=== PATIENT | female | born 1950 | race Caucasian/White ===

== ENCOUNTER → 2018-11-21 | Outpatient (CLI) | payer OTHER ==
[~2018-11-21] MED LIST: ADDERALL 30 MG30 MG PO; ANTIDEPRESSANT; CLONAZEPAM 0.50.5 M1 PO; LEVOXYL50 MCG PO; REQUIP 0.25 M0.25 MG PO; TRAZODONE HCL50 MG PO; WELLBUTRIN XL300 MG PO
== END ==
LOC: M.CT 11-20 09:45
DX: I25.84 Coronary atherosclerosis due to calcified coronary lesion (principal)